=== PATIENT | female | born 1950 | race Caucasian/White ===

== ENCOUNTER 2023-11-06 14:21 | Day surgery (SDC) | payer MEDICARE, BC ==
[~2023-11-06] VITALS: Ht 162.6 cm; Wt 48.6 kg
[2023-11-06 14:59] VITALS: BP 131/90; PULSE 64; TEMP 97.5
[2023-11-06] MEDS ORDERED: LAMICTAL XR300 MG PO (15:05)
[2023-11-06] MEDS ORDERED: KEPPRA250 MG PO (15:05)
[2023-11-06] MEDS ORDERED: NORVASC 5MG5 MG/TAB PO (15:06)
[2023-11-06] MEDS ORDERED: VITAMIN C500 MG PO (15:07)
[2023-11-06] MEDS ORDERED: MULTIPLE VITAMI1 CAP PO (15:07)
[2023-11-06] MEDS ORDERED: ASPIRIN 81M81 MG/TA2 PO (15:07)
[2023-11-06] MEDS ORDERED: VITAMIN D250 MCG PO (15:08)
[2023-11-06] MEDS ORDERED: NS 100 ML IV.SOLN. IR SCH (15:56)
[2023-11-06] MEDS ORDERED: Midazolam 2 MG/2 ML VIAL IV SCH (15:59)
[2023-11-06] MEDS ORDERED: fentaNYL 50 MCG/ML 2 ML VIAL IV SCH (16:01)
[2023-11-06] MEDS ORDERED: 1/2 NS 1,000 ML IV SCH (16:06)
[2023-11-06 16:17] VITALS: BP 114/76; PULSE 61
[2023-11-06 16:30] VITALS: BP 132/84; PULSE 62
[2023-11-06 16:45] VITALS: BP 141/77; PULSE 57
[2023-11-06 17:00] VITALS: BP 138/76; PULSE 57
--- NOTE | 2023-11-06 17:22 | NUR ---
Pt ambulated to EU9 with a steady gait accompanied by . Pt is scheduled for a Loop recorder removal. IV started. Meds and HX reviewed with the pt. Consent for the procedure signed. Pt was taken to cleaner laboratory equipment for the procedure. Came back to [facility]9 post procedure. Site was assessed at time of arrival. Dressing was clean. Pt recovered with us for about an hr. Was offered something to eat and drink. Pt accepeted a diet pepsi. Gave pt discharge education and information. No questions at this time. Site assessed again before leaving. Dressing remained clean. Pt exited the unit by wheelchair to husbands car.
== END 2023-11-06 17:17 | disposition home or self-care (01) ==
LOC: COL.CAR 14:21
DX: Z45.09 Encounter for adjustment and management of other cardiac device (principal); I11.9 Hypertensive heart disease without heart failure; J44.9 Chronic obstructive pulmonary disease, unspecified; E78.2 Mixed hyperlipidemia; Z87.891 Personal history of nicotine dependence; Z79.899 Other long term (current) drug therapy
CPT/HCPCS: J0690; J2250; J3010